=== PATIENT | male | born 1960 | race Caucasian/White ===

== ENCOUNTER 2017-02-10 17:35 | Observation (INO) | payer MEDICAID, OTHER ==
[~2017-02-10] VITALS: Ht 162.6 cm; Wt 79.7 kg
[~2017-02-10 17:35] MED LIST: CEPH-443; HYDR-1666; SULF1TAB7
[2017-02-10 23:09] VITALS: TEMP 98.2
[2017-02-10] MEDS ORDERED: LIDOCAINE/MYLANTA 40 ML BTL PO STA (23:30)
[2017-02-10] MEDS ORDERED: SOD CHLORIDE 0.9% 1,000 ML IV STA (23:30)
[2017-02-10 23:40] LABS: BASOPHILS % 0.3 % (0.0-2.0); EOSINOPHILS # 0.1 10^3/ul (0.0-0.5); EOSINOPHILS % 0.7 % (0.0-7.0); HEMATOCRIT 38.1 % (42.0-52.0); HEMOGLOBIN 13.5 g/dl (14.0-18.0); LYMPHOCYTES # 1.2 10^3/ul (0.8-2.9); LYMPHOCYTES % 10.8 % (15.0-51.0); MEAN CORPUSCULAR HEMOGLOBIN 30.3 pg (29.0-33.0); MEAN CORPUSCULAR HGB CONC 35.4 g/dl (32.0-37.0); MEAN CORPUSCULAR VOLUME 85.4 fl (82.0-101.0); MEAN PLATELET VOLUME 10.6 fl (7.4-10.4); MONOCYTE # 0.9 10^3/ul (0.3-0.9); MONOCYTES % 8.1 % (0.0-11.0); NEUTROPHILS % 79.6 % (39.0-77.0); PLATELET COUNT 197 10^3/UL (140-415); RED BLOOD COUNT 4.46 10^6/ul (4.70-6.10); RED CELL DISTRIBUTION WIDTH 12.4 % (11.5-14.5); WHITE BLOOD COUNT 10.6 10^3/ul (4.8-10.8)
[2017-02-10 23:57] LABS: ALBUMIN 3.6 g/dl (3.3-4.9); ALBUMIN/GLOBULIN RATIO 1.09; BILIRUBIN,INDIRECT 0.3 mg/dl (0-1.1); BILIRUBIN,TOTAL 0.3 mg/dl (0.2-1.3); CALCIUM 9.2 mg/dl (8.4-10.2); CREATININE 2.97 mg/dl (0.61-1.24); POTASSIUM 3.6 mmol/L (3.5-5.1); TOTAL PROTEIN 6.9 g/dl (6.1-8.1)
[2017-02-11] VITALS (8 sets, daily range): BP systolic 103–187; BP diastolic 59–90; PULSE 66–83; RESP 16–20; Ht 162.6 cm; Wt 79.7 kg
--- NOTE | 2017-02-11 00:04 | ERA ---
ER Documentation Chief Complaint Date/Time DATE: 02/11/17 TIME: 00:03 Chief Complaint abdominal pain and body ache x 2 days HPI This a 56-year-old male with complaints of epigastric and mid abdominal pain onset this morning. He says if he tries to have anything to eat or drink he will vomit. Vomitus is nonbilious and nonbloody. He also complains of diffuse body aches. Says he has not had a fever that is documented has had some chills. No cough no dysuria. The patient denies any alcohol or NSAID use. ROS All systems reviewed and are negative except as per history of present illness. Medications Home Meds Reported Medications Hydrocodone Bit/Acetaminophen (Vicodin 5/500 Tablet) 1 Tab Tablet 10/09/12 Cephalexin* (Keflex*) 500 Mg Capsule 10/09/12 Sulfamethoxazole-Trimethoprim* (Bactrim* DS) 1 Tab Tab 10/09/12 Allergies Allergies: Coded Allergies: No Known Allergy (Unverified , 10/09/12) PMhx/Soc History of Surgery: No Anesthesia Reaction: No Hx Neurological Disorder: No Hx Respiratory Disorders: No Hx Cardiac Disorders: Yes (HTN) Hx Psychiatric Problems: No Hx Miscellaneous Medical Probl: No Hx Alcohol Use: Yes (OCCASSIONALLY) Hx Substance Use: No Hx Tobacco Use: Yes Smoking Status: Current every day smoker FmHx Family History: No coronary disease Physical Exam Vitals Vital Signs Date Time Temp Pulse Resp B/P Pulse Ox O2 Delivery O2 Flow Rate FiO2 02/11/17 01:47 71 16 169/92 95 Room Air 02/10/17 23:09 98.2 67 20 171/98 99 Room Air 02/10/17 17:37 99.5 75 18 182/90 96 Physical Exam Const: Well-developed, well-nourished Head: Atraumatic, normocephalic Eyes: Normal Conjunctiva, PERRLA, EOMI, normal sclera, no nystagmus ENT: Normal External Ears, Nose and Mouth, moist mucus membranes. Neck: Full range of motion. No meningismus, no lymphadenopathy. Resp: Clear to auscultation bilaterally, no wheezing, rhonchi, rales Cardio: Regular rate and rhythm, no murmurs, S1 S2 present Abd: Soft, mild mid abdominal and epigastric tenderness non distended. Normal bowel sounds, no guarding or rebound, no pulsitile abdominal masses or bruits, Left inguinal hernia that is a large no erythema to the skin, mild tenderness to palpation Skin: No petechiae or rashes, no ecchymosis , no maculopapular rash Back: No midline or flank tenderness Ext: No cyanosis, or edema, FROM x 4, normal inspection, neurovascularly intact x 4 Neur: Awake and alert, STR 5/5 x 4, sensation intact x 4, no focal findings, cerebellum intact Psych: Normal Mood and Affect Result Diagram: 02/10/17232902/10/172329 Results 24 hrs Laboratory Tests Test 02/10/17 23:30 White Blood Count 10.610^3/ul Red Blood Count 4.4610^6/ul Hemoglobin 13.5g/dl Hematocrit 38.1% Mean Corpuscular Volume 85.4fl Mean Corpuscular Hemoglobin 30.3pg Mean Corpuscular Hemoglobin Concent 35.4g/dl Red Cell Distribution Width 12.4% Platelet Count 88817^3/UL Mean Platelet Volume 10.6fl Neutrophils % 79.6% Lymphocytes % 10.8% Monocytes % 8.1% Eosinophils % 0.7% Basophils % 0.3% Nucleated Red Blood Cells % 0.0/100WBC Neutrophils # (Manual) 8.510^3/ul Lymphocytes # 1.210^3/ul Monocytes # 0.910^3/ul Eosinophils # 0.110^3/ul Basophils # 0.010^3/ul Nucleated Red Blood Cells # 0.010^3/ul Sodium Level 142mmol/L Potassium Level 3.6mmol/L Chloride Level 105mmol/L Carbon Dioxide Level 24mmol/L Anion Gap 17 Blood Urea Nitrogen 24mg/dl Creatinine 2.97mg/dl Glucose Level 96mg/dl Calcium Level 9.2mg/dl Total Bilirubin 0.3mg/dl Direct Bilirubin 0.00mg/dl Indirect Bilirubin 0.3mg/dl Aspartate Amino Transf (AST/SGOT) 14IU/L Alanine Aminotransferase (ALT/SGPT) 18IU/L Alkaline Phosphatase 66IU/L Total Protein 6.9g/dl Albumin 3.6g/dl Globulin 3.30g/dl Albumin/Globulin Ratio 1.09 Lipase 22U/L Current Medications Medications (Trade) Dose Ordered Sig/Ceci Route PRN Reason Start Time Stop Time Status Last Admin Dose Admin Sodium Chloride (NS) 1,000 ml @ 1,000 mls/hr Q1H STAT IV 02/10/17 23:30 02/11/17 00:29 DC 02/11/17 00:10 Miscellaneous Medication (Gi Cocktail (2)) 40 ml ONCE STAT PO 02/10/17 23:30 02/10/17 23:33 DC 02/11/17 00:10 Morphine Sulfate (morphine) 4 mg ONCE STAT IV 02/11/17 00:46 02/11/17 00:47 DC 02/11/17 00:53 Ondansetron HCl (Zofran Inj) 4 mg ONCE STAT IV 02/11/17 00:46 02/11/17 00:47 DC 02/11/17 00:52 Procedures/MDM PROCEDURE: CT abdomen and pelvis without contrast. CLINICAL INDICATION: Abdominal Pain TECHNIQUE: Noncontrast CT examination of the head, with axial, sagittal and coronal reformatted images. CTDI: 9.69 mGy and DLP: 635.61 mGy-cm. COMPARISON: None. FINDINGS: CT abdomen: Mild atelectasis at the bilateral lung bases. Otherwise, the lung bases are clear. The heart size is normal, without pericardial thickening or effusion. The liver is normal in size and density without focal mass or intrahepatic biliary dilatation. The spleen is normal in size and homogeneous in density. The stomach is partially collapsed, but is grossly unremarkable. The pancreas as visualized is normal. The gallbladder and biliary tree are unremarkable and there is no evidence for biliary dilatation. The adrenal glands are symmetric and normal. The kidneys are symmetrically unremarkable as well. No renal calculus or obstructive uropathy or mass lesion is seen. The aorta is of normal caliber. Aortic vascular calcifications are present. There is no retroperitoneal lymphadenopathy. The thomas hepatis region is clear. Diverticulosis in the distal transverse and descending colons. There are few right colon diverticula. CT pelvis: Partial herniation of the left anterior urinary bladder into the left inguinal canal. Herniation contains the anterior left urinary bladder and fat and measures 94 x 61 x 55 mm. The small bowel loops situated within the pelvis are unremarkable. The pelvic organs are otherwise normal. The pelvic sidewalls and inguinal regions are clear. The sigmoid colon contains numerous diverticula; and rectum is unremarkable. No mass, lymphadenopathy, or free fluid is seen. No acute inflammation is seen. The appendix is unremarkable. The surrounding osseous structures are remarkable for mild degenerative spondylosis of the spine. No osteolytic or osteoblastic lesion is detected. IMPRESSION: 1. Large 94 x 61 x 55 mm herniation of anterior left urinary bladder and fat into the left inguinal canal. 2. Diverticulosis of the distal transverse and descending colons as well as the sigmoid colon, and greater in the sigmoid colon. 3. Otherwise, no acute process in the abdomen. RPTAT: [facility] Physician Missy Date Time Electronically viewed and signed by Physician Missy on 02/11/2017 01:21 RS/ CC: KATHERIN ROCKWELL DO Patient has a creatinine of nearly 3.0 the patient says he does not have any history of renal insufficiency. He has a very large left inguinal hernia which does contain some of the bladder. Patient says he has no pain down there however it is tender to palpation. No signs of erythema to the skin he has had this bulge for "a long time". There does not appear to be any type of incarceration or bowel obstruction I will admit him for renal insufficiency which may be possibly caused by the herniation of the bladder into the left inguinal canal, perhaps the bladder being in the inguinal canal is preventing some urinary tract flow down the ureters however he does not have any hydrated hydronephrosis and this is less likely the patient has an elevated creatinine nearly 3.0 he does not have any history of prior kidney disease that he knows of. I will admit him for renal insufficiency. The patient has a hernia in the left inguinal canal that is tender to palpation but he said it does not hurt at rest. He said he has had this for "a long time ". The patient's creatinine is elevated could be due to the bladder going into the inguinal canal causing some decreased flow from the kidneys down the ureters however there is no hydronephrosis and this is probably less likely. Departure Diagnosis: Primary Impression: Renal insufficiency Condition: Stable KATHERIN ROCKWELL DO Feb 11, 2017 00:04
[2017-02-11] MEDS ORDERED: morphine 4 MG/ML VIAL IV STA ×2 (00:46→13:22)
[2017-02-11] MEDS ORDERED: ONDANSETRON 4 MG INJ IV STA (00:46)
--- NOTE | 2017-02-11 01:22 | RADRPT ---
PROCEDURE: CT abdomen and pelvis without contrast. CLINICAL INDICATION: Abdominal Pain TECHNIQUE: Noncontrast CT examination of the head, with axial, sagittal and coronal reformatted im ages. CTDI: 9.69 mGy and DLP: 635.61 mGy-cm. COMPARISON: None. FINDINGS: CT abdomen: Mild atelectasis at the bilateral lung bases. Otherwise, the lung bases are clear. The heart size is normal, without pericardial thickening or effusion. The liver is normal in size and density without focal mass or intrahepatic biliary dilatation. The spleen is normal in size and homogeneous in density. The stomach is partially collapsed, but is zina ssly unremarkable. The pancreas as visualized is normal. The gallbladder and biliary tree are unre markable and there is no evidence for biliary dilatation. The adrenal glands are symmetric and norm al. The kidneys are symmetrically unremarkable as well. No renal calculus or obstructive uropathy o r mass lesion is seen. The aorta is of normal caliber. Aortic vascular calcifications are present. There is no retroperit bay lymphadenopathy. The thomas hepatis region is clear. Diverticulosis in the distal transverse and descending colons. There are few right colon diverticula . CT pelvis: Partial herniation of the left anterior urinary bladder into the left inguinal canal. Herniation co ntains the anterior left urinary bladder and fat and measures 94 x 61 x 55 mm. The small bowel loops situated within the pelvis are unremarkable. The pelvic organs are otherwise normal. The pelvic sidewalls and inguinal regions are clear. The sigmoid colon contains numerous d iverticula; and rectum is unremarkable. No mass, lymphadenopathy, or free fluid is seen. No acute inflammation is seen. The appendix is unremarkable. The surrounding osseous structures are remarkable for mild degenerative spondylosis of the spine. N o osteolytic or osteoblastic lesion is detected. IMPRESSION: 1. Large 94 x 61 x 55 mm herniation of anterior left urinary bladder and fat into the left inguinal canal. 2. Diverticulosis of the distal transverse and descending colons as well as the sigmoid colon, and greater in the sigmoid colon. 3. Otherwise, no acute process in the abdomen. RPTAT: [facility] Physician Missy Date Time Electronically viewed and signed by Physician Missy on 02/11/2017 01:21 RS/
[2017-02-11] MEDS ORDERED: SOD CHLORIDE 0.9% 1,000 ML IV SCH (02:10)
[2017-02-11] MEDS ORDERED: ONDANSETRON 4 MG INJ IV PRN ×2 (02:30→04:00)
[2017-02-11] MEDS ORDERED: ACETAMINOPHEN 325 MG TAB PO PRN (02:30)
[2017-02-11] MEDS ORDERED: DEXTROSE 5%-0.45% NACL 1,000 ML IV SCH (04:00)
[2017-02-11] MEDS: morphine 4 MG/ML VIAL IV PRN ×4 (04:20→23:33)
[2017-02-11 05:47] LABS: BASOPHILS % 0.4 % (0.0-2.0); EOSINOPHILS # 0.1 10^3/ul (0.0-0.5); HEMATOCRIT 37.6 % (42.0-52.0); HEMOGLOBIN 12.7 g/dl (14.0-18.0); LYMPHOCYTES # 1.2 10^3/ul (0.8-2.9); LYMPHOCYTES % 12.9 % (15.0-51.0); MEAN CORPUSCULAR HEMOGLOBIN 29.4 pg (29.0-33.0); MEAN CORPUSCULAR HGB CONC 33.8 g/dl (32.0-37.0); MEAN PLATELET VOLUME 11.2 fl (7.4-10.4); MONOCYTE # 0.8 10^3/ul (0.3-0.9); MONOCYTES % 8.9 % (0.0-11.0); NEUTROPHILS % 76.4 % (39.0-77.0); PLATELET COUNT 185 10^3/UL (140-415); RED BLOOD COUNT 4.32 10^6/ul (4.70-6.10); RED CELL DISTRIBUTION WIDTH 12.1 % (11.5-14.5); WHITE BLOOD COUNT 9.4 10^3/ul (4.8-10.8)
--- NOTE | 2017-02-11 05:47 | HP ---
Date/Time of Note Date/Time of Note DATE: 02/11/17 TIME: 05:30 Assessment/Plan VTE Prophylaxis VTE Prophylaxis Intervention: SCD's Lines/Catheters IV Catheter Type (from Nrsg): Peripheral IV Assessment/Plan Assessment/Plan 1. Presumed acute kidney injury -will give IV fluid -Renal ultrasound and nephrology consult -CT/abdomen pelvis did show a large part of the bladder in the left inguinal canal but there is no sign of strangulation and the patient does not have any pain, so a post renal etiology as a result of bladder obstruction seems unlikely. 2. Abdominal pain: -Pain is described as burning type and mainly localized in the periumbilical and in the lower epigastric area. This could be from gastritis/PUD. He denied pain in the left inguinal hernia area. -He will be placed on a PPI 3. Left inguinal hernia, containing part of the bladder: Patient denies pain -I believe this surgical consult was placed in the ER to evaluate his inguinal hernia 4. Hypertensive urgency -Patient was recently diagnosed with hypertension but he stopped taking his medication about a month ago. Will adjust antihypertensives as needed for better BP control HPI/ROS Admit Date/Time Admit Date/Time Feb 11, 2017 at 02:10 Hx of Present Illness This is a 56-year-old male with a history of hypertension diagnosed recently, left inguinal hernia diagnosed 10 years ago who presented to the emergency department complaining of abdominal pain. He said about 4 5 days ago, he started experiencing generalized body ache and back pain, which he said felt like "flu". He went to an urgent care and was given pain medication with improvement in his symptom. He started experiencing abdominal pain yesterday, which is localized in the periumbilical area and is described as burning type. He denied acid reflux symptoms. He did however stated that for a while, he has been burping when on empty stomach. He was started on blood pressure medication , which he took for about a couple of months but stopped about a month ago. As far as his left inguinal hernia is concerned, it was diagnosed 10 years ago. He recently so a surgeon as an outpatient but no surgical intervention is planned. He said that he only has minimal pain intermittently for the past several years. Currently he denies pain in the inguinal area. He also denied urinary symptoms, fever, chills, chest pain or shortness of breath. When he presented to the ER, blood pressure was elevated at 182/90. Labs shows a BUN of 24 and creatinine of almost 3. CT abdomen/pelvis shows Large 94 x 61 x 55 mm herniation of anterior left urinary bladder and fat into the left inguinal canal. Patient denied a history of kidney disease. He also denied urinary symptoms. . PMH/Family/Social Social History Smoking Status: Current every day smoker Exam/Review of Systems Vital Signs Vitals Vital Signs Date Time Temp Pulse Resp B/P Pulse Ox O2 Delivery O2 Flow Rate FiO2 02/11/17 04:04 97.8 83 18 187/86 96 Room Air Exam Constitutional: alert, oriented, well developed Head: atraumatic, normocephalic Eyes: EOMI, other (There is some right eye redness. Twitching of his right eye is also noted) ENMT: other (There appears to be telangiectasia over nose) Respiratory: clear to auscultation, normal air movement Cardiovascular: nl pulses, regular rate and rhythm Gastrointestinal: non-tender, soft Genitourinary - Male: other (Left inguinal hernia is noted. No tenderness) Labs Result Diagram: 02/10/17 2330 02/10/17 2330 Medications Medications Current Medications Sodium Chloride 1,000 ml @ 80 mls/hr [id number] IV ; Start 02/11/17 at 02:10; Stop 02/11/17 at 14:39 Dextrose/Sodium Chloride (D5-1/2ns) 1,000 ml @ 100 mls/hr Q10H IV Last administered on 02/11/17 04:24; Admin Dose 100 MLS/HR; Start 02/11/17 at 04:00 Morphine Sulfate (morphine) 3 mg Q4H PRN IV PAIN Last administered on 04:20; Admin Dose 3 MG; Start 02/11/17 at 04:00 Ondansetron HCl (Zofran Inj) 4 mg Q6H PRN IV NAUSEA; Start 02/11/17 at 04:00 Hydralazine HCl (Apresoline) 10 mg Q4H PRN IV ELEVATED SYSTOLIC BP; Start 02/11 at 04:00 Amlodipine Besylate (Norvasc) 10 mg DAILY PO ; Start 02/11/17 at 09:00 KATY KHAN MD Feb 11, 2017 05:45
[2017-02-11 06:16] LABS: ALBUMIN 3.2 g/dl (3.3-4.9); ALBUMIN/GLOBULIN RATIO 1.1; BILIRUBIN,INDIRECT 0.3 mg/dl (0-1.1); BILIRUBIN,TOTAL 0.3 mg/dl (0.2-1.3); CALCIUM 8.4 mg/dl (8.4-10.2); CREATININE 3.01 mg/dl (0.61-1.24); POTASSIUM 3.4 mmol/L (3.5-5.1); TOTAL PROTEIN 6.1 g/dl (6.1-8.1)
[2017-02-11] MEDS ORDERED: POTASSIUM CHLORIDE (SR) 20 MEQ TAB PO STA (07:50)
[2017-02-11] MEDS: AMLODIPINE 10 MG TAB PO SCH (09:54)
[2017-02-11 10:16] LABS: ADD UMIC YES; UR ASCORBIC ACID NEGATIVE (NEGATIVE); UR BILIRUBIN (Dip) NEGATIVE (NEGATIVE); UR BLOOD (Dip) 1+ mg/dL (NEGATIVE); UR CLARITY CLEAR (CLEAR); UR COLOR STRAW (YELLOW); UR GLUCOSE (Dip) NEGATIVE (NEGATIVE); UR KETONES (Dip) NEGATIVE (NEGATIVE); UR LEUKOCYTE ESTERASE (Dip) NEGATIVE Leu/ul (NEGATIVE); UR NITRITE (Dip) NEGATIVE (NEGATIVE); UR RBC 1 /HPF (0-5); UR SPECIFIC GRAVITY (Dip) 1.004 (1.003-1.030); UR TOTAL PROTEIN (Dip) 2+ mg/dl (NEGATIVE); UR UROBILINOGEN (Dip) NEGATIVE (NEGATIVE)
--- NOTE | 2017-02-11 10:26 | RADRPT ---
PROCEDURE: Renal US. CLINICAL INDICATION: Renal dysfunction. TECHNIQUE: Multiple sonographic images of the kidneys and urinary bladder were obtained. The imag es were reviewed on a PACS workstation. COMPARISON: No prior studies are available for comparison. FINDINGS: The right kidney measures 13.2 cm. The left kidney measures 11.4 cm. There is no renal mass. There is no hydronephrosis. There is no renal calculus. Renal parenchymal thickness is normal bilaterally. Echogenicity is normal bilaterally. The perirenal regions are normal with no fluid collection or mass. The urinary bladder is not visualized. IMPRESSION: 1. Bladder not visualized. 2. No hydronephrosis. 3. Otherwise normal renal ultrasound. RPTAT: QQ .Jesus Erickson MD, Date Time Electronically viewed and signed by .Jesus Erickson MD, MD on 02/11/2017 10:26 .R/
[2017-02-11 10:43] LABS: POTASSIUM,URINE RANDOM < 9.7 mmol/L (25-125)
[2017-02-11] MEDS: DEXTROSE 5%-0.45% NACL 500 ML IV SCH ×3 (13:47→21:23)
--- NOTE | 2017-02-11 14:08 | CONS ---
DATE OF ADMISSION: 02/11/2017 DATE OF CONSULTATION: 02/11/2017 REASON FOR CONSULTATION: Acute kidney injury. HISTORY OF PRESENT ILLNESS: This is a 56-year-old male with a past medical history of hypertension, history of left inguinal hernia, who presents to the emergency room complaining of abdominal pain. The patient states the pain started about 4-5 days ago when he started experiencing general body aches, back pain, he said it was flu-like, he went to Urgent Care, was given medications. Patient states he has been taking Motrin 400 mg every 4 hours multiple days. The patient then developed worsening mid epigastric pain. As a result, he came into the emergency room for evaluation. Upon arrival, the patient had an elevated blood pressure 182/90, BUN 24, creatinine 3. CT of the pelvis showed a herniation in his anterior left urinary bladder. The patient was subsequently given pain medications and transferred to [facility] for continued care. In terms of patient's renal history, the patient states he has no prior history of chronic kidney disease. Denies any hemoptysis, hematemesis, hematochezia. PAST MEDICAL HISTORY: As stated above. History of left inguinal hernia. PAST SURGICAL HISTORY: None. ALLERGIES: NONE. FAMILY HISTORY: Noncontributory. SOCIAL HISTORY: Does not drink, smoke, or do drugs. MEDICATION: Reviewed. PHYSICAL EXAMINATION: VITAL SIGNS: Blood pressure is 103/59, respirations 18, pulse 69, temperature 98.5. HEENT: Head is normocephalic. NECK: Supple. HEART: Regular rate. LUNGS: Diminished breath sounds at the base. ABDOMEN: Soft. Positive mid epigastric tenderness to palpation. EXTREMITIES: Negative for clubbing, cyanosis. No edema. DERMATOLOGIC: Clean. No rashes. MUSCULOSKELETAL: No joint effusion. NEUROLOGIC: No focal deficits. LABORATORY DATA: Shows sodium 145, potassium 3.4, BUN 24, creatinine 3.01. White count 9.4, hemoglobin 10.7, hematocrit 37.6, platelet count is 195. Imaging studies reviewed. IMPRESSION AND PLAN: This is a 56-year-old male who presents with: 1. Nonoliguric acute kidney injury with unknown baseline creatinine. Etiology may be multifactorial secondary to non- steroidal anti-inflammatory drug use, gastrointestinal loss. Plan at this point is to do a full evaluation. Will check urinalysis with microanalysis. Check urine electrolytes. Check renal ultrasound. Would recommend to discontinue non-steroidal anti-inflammatory drug use. Continue IV hydration. Monitor closely. 2. Hyponatremia. The patient has a free water deficit of 1 liter. Encourage free water intake. 3. Hypokalemia. Replete potassium chloride. 4. Anemia. Monitor hemoglobin and hematocrit levels. 5. Mid-epigastric abdominal pain, etiology may be secondary to gastritis from recent non-steroidal anti-inflammatory drug use. Continue proton pump inhibitor. 6. History of left inguinal hernia. Continue to monitor. 7. Hypertension urgency secondary to pain. Continue current pain regimen. Thank you, Dr. Ceja, for this interesting consult. It will be a pleasure to follow the patient with you throughout the hospital course. Dictated By: Manuel Hector DO /[email or web address]/[email or web address] /Document#: [id number]
--- NOTE | 2017-02-11 18:10 | RADRPT ---
PROCEDURE: XR Chest. CLINICAL INDICATION: Preoperative clearance TECHNIQUE: Single frontal view of the chest was obtained COMPARISON: None FINDINGS: No pleural effusion or pneumothorax. Low lung volumes with elevated right hemidiaphragm with bibasilar atelectasis. Normal cardiac silhouette with left ventricular configuration. Dilated aortic arch suggestive of ch ronic systemic hypertension. No acute osseous abnormality. IMPRESSION: No acute cardiopulmonary disease. Low lung volumes with bibasilar atelectasis. RPTAT: EE Physician Spring Date Time Electronically viewed and signed by Physician Spring on 02/11/2017 18:10 /
--- NOTE | 2017-02-11 18:34 | CONS ---
Date/Time of Note Date/Time of Note DATE: 02/11/17 TIME: 18:26 Assessment/Plan Assessment/Plan Additional Assessment/Plan Painful and symptomatic large left inguinal hernia Plan: We will arrange for operative repair with mesh sometime tomorrow. I have described the procedure, outcomes, expectations alternatives and risks in detail with the patient and both have an excellent understanding of the nature of his situation and agreed to the proposed plan of therapy as outlined. Consultation Date/Type/Reason Admit Date/Time Feb 11, 2017 at 02:10 Date of Consultation: Feb 11, 2017 Reason for Consultation Large painful left inguinal hernia Hx of Present Illness Patient is a 56-year-old gentleman who was admitted last night with chief complaints of abdominal pain nausea and vomiting. He was noted to have a large slightly tender left inguinal hernia. CT scan of the abdomen showed no intra- abdominal pathology. It did show a large left inguinal hernia which contained a portion of the urinary bladder. The patient's symptoms of abdominal pain now localized to the hernia itself. He has no visceral symptoms today. He has no fever, but does have unexplained renal compromise for which she is being seen by the appropriate specialist. Gastrointestinal: other (As in the HPI) Genitourinary: other (Patient states that he has had this hernia for quite some time but it has never been this painful) Musculoskeletal: no complaints Skin: no complaints Neurologic: no complaints Endocrine: no complaints Lymphatic: no complaints Psychological: no complaints Past Surgical History Past Surgical Hx: noncontributory Family History Significant Family History: no pertinent family hx Social History Smoking Status: Current every day smoker Drug Use: none Exam/Review of Systems Vital Signs Vitals Vital Signs Date Time Temp Pulse Resp B/P Pulse Ox O2 Delivery O2 Flow Rate FiO2 02/11/17 16:10 97.9 68 20 170/87 96 02/11/17 05:45 Room Air Intake and Output 02/10/17 02/10/17 02/11/17 15:00 23:00 07:00 Intake Total 350 ml Output Total 550 ml Balance -200 ml Exam Constitutional: alert, oriented Psych: no complaints Head: normocephalic Eyes: nl conjunctiva ENMT: nl external ears & nose Neck: supple Respiratory: clear to auscultation Gastrointestinal: soft Genitourinary - Male: other (Large partially reducible left inguinal hernia with slight tenderness) Musculoskeletal: nl extremities to inspection Extremities: normal pulses Skin: nl turgor Lymph: nl lymph nodes Results Result Diagram: 02/11/17 0443 02/11/17 0443 Results 24 hrs Laboratory Tests Test 02/10/17 23:30 02/11/17 04:43 02/11/17 09:00 White Blood Count 10.6 9.4 Red Blood Count 4.46 L 4.32 L Hemoglobin 13.5 L 12.7 L Hematocrit 38.1 L 37.6 L Mean Corpuscular Volume 85.4 87.0 Mean Corpuscular Hemoglobin 30.3 29.4 Mean Corpuscular Hemoglobin Concent 35.4 33.8 Red Cell Distribution Width 12.4 12.1 Platelet Count 197 185 Mean Platelet Volume 10.6 H 11.2 H Neutrophils % 79.6 H 76.4 Lymphocytes % 10.8 L 12.9 L Monocytes % 8.1 8.9 Eosinophils % 0.7 1.0 Basophils % 0.3 0.4 Nucleated Red Blood Cells % 0.0 0.0 Neutrophils # (Manual) 8.5 H 7.2 Lymphocytes # 1.2 1.2 Monocytes # 0.9 0.8 Eosinophils # 0.1 0.1 Basophils # 0.0 0.0 Nucleated Red Blood Cells # 0.0 0.0 Sodium Level 142 145 H Potassium Level 3.6 3.4 L Chloride Level 105 108 Carbon Dioxide Level 24 22 Anion Gap 17 H 18 H Blood Urea Nitrogen 24 H 24 H Creatinine 2.97 H 3.01 H Glucose Level 96 106 Calcium Level 9.2 8.4 Total Bilirubin 0.3 0.3 Direct Bilirubin 0.00 0.00 Indirect Bilirubin 0.3 0.3 Aspartate Amino Transf (AST/SGOT) 14 L 13 L Alanine Aminotransferase (ALT/SGPT) 18 26 Alkaline Phosphatase 66 58 Total Protein 6.9 6.1 Albumin 3.6 3.2 L Globulin 3.30 H 2.90 Albumin/Globulin Ratio 1.09 1.10 Lipase 22 L Urine Color STRAW Urine Clarity CLEAR Urine pH 6.0 Urine Specific [place] 1.004 Urine Ketones NEGATIVE Urine Nitrite NEGATIVE Urine Bilirubin NEGATIVE Urine Urobilinogen NEGATIVE Urine Leukocyte Esterase NEGATIVE Urine Microscopic RBC 1 Urine Microscopic WBC 0 Urine Hemoglobin 1+ H Urine Random Creatinine 50.42 Urine Random Sodium 29 L Urine Random Potassium < 9.7 L Urine Glucose NEGATIVE Urine Total Protein 76.0 H Medications Medications Current Medications Morphine Sulfate (morphine) 3 mg Q4H PRN IV PAIN Last administered on 09:43; Admin Dose 3 MG; Start 02/11/17 at 04:00 Ondansetron HCl (Zofran Inj) 4 mg Q6H PRN IV NAUSEA; Start 02/11/17 at 04:00 Hydralazine HCl (Apresoline) 10 mg Q4H PRN IV ELEVATED SYSTOLIC BP; Start 02/11 at 04:00 Amlodipine Besylate 10 mg 10 mg DAILY PO Last administered on 02/11/17 09:54; Admin Dose 10 MG; Start 02/11/17 at 09:00 Dextrose/Sodium Chloride (D5-1/2ns) 500 ml @ 100 mls/hr Q5H IV Last administered on 02/11/17 13:47; Admin Dose 100 MLS/HR; Start 02/11/17 at 13:26 Pantoprazole (Protonix Tab) 40 mg DAILY@06 PO ; Start 02/12/17 at 06:00 DAVEY BALTAZAR MD Feb 11, 2017 18:34
[2017-02-11] MEDS ORDERED: morphine 2 MG INJ IV PRN (19:00)
[2017-02-11] MEDS: hydrALAzine 20 MG INJ IV PRN (21:55)
[2017-02-12] VITALS (26 sets, daily range): BP systolic 131–163; BP diastolic 56–91; PULSE 73–86; RESP 14–21
[2017-02-12] MEDS: DEXTROSE 5%-0.45% NACL 500 ML IV SCH ×4 (04:07→19:43)
[2017-02-12] MEDS: PANTOPRAZOLE (EC) 40 MG TAB PO SCH (05:29)
[2017-02-12 05:34] LABS: BASOPHILS % 0.2 % (0.0-2.0); EOSINOPHILS # 0.1 10^3/ul (0.0-0.5); EOSINOPHILS % 1.1 % (0.0-7.0); HEMATOCRIT 36.7 % (42.0-52.0); HEMOGLOBIN 12.4 g/dl (14.0-18.0); LYMPHOCYTES # 0.8 10^3/ul (0.8-2.9); LYMPHOCYTES % 9.6 % (15.0-51.0); MEAN CORPUSCULAR HEMOGLOBIN 29.2 pg (29.0-33.0); MEAN CORPUSCULAR HGB CONC 33.8 g/dl (32.0-37.0); MEAN CORPUSCULAR VOLUME 86.4 fl (82.0-101.0); MONOCYTE # 0.7 10^3/ul (0.3-0.9); NEUTROPHILS % 80.9 % (39.0-77.0); PLATELET COUNT 180 10^3/UL (140-415); RED BLOOD COUNT 4.25 10^6/ul (4.70-6.10); RED CELL DISTRIBUTION WIDTH 12.5 % (11.5-14.5); WHITE BLOOD COUNT 8.5 10^3/ul (4.8-10.8)
[2017-02-12] MEDS: morphine 4 MG/ML VIAL IV PRN (05:51)
[2017-02-12 06:11] LABS: CALCIUM 8.5 mg/dl (8.4-10.2); CREATININE 3.3 mg/dl (0.61-1.24); MAGNESIUM 2.4 mg/dl (1.7-2.5); PHOSPHORUS 4.5 mg/dl (2.5-4.9); POTASSIUM 3.8 mmol/L (3.5-5.1)
[2017-02-12] MEDS: hydrALAzine 20 MG INJ IV PRN (06:47)
[2017-02-12] MEDS ORDERED: SUGAMMADEX SODIUM 200 MG/2 ML VIAL IV ONE (07:00)
[2017-02-12] MEDS ORDERED: FENTAnyl 50 MCG/ML VIAL ONE (07:41)
[2017-02-12] MEDS ORDERED: GLYCOPYRROLATE 0.4 MG INJ ONE (07:41)
[2017-02-12] MEDS ORDERED: MIDAZOLAM 1 MG/ML 2 ML INJ ONE (07:41)
[2017-02-12] MEDS ORDERED: NEOSTIGMINE 3 MG/3 ML SYRINGE ONE (07:41)
[2017-02-12] MEDS ORDERED: ROCURONIUM 50 MG INJ ONE (07:41)
[2017-02-12] MEDS ORDERED: LIDOCAINE 2% (SDV) 5 ML INJ ONE (07:41)
[2017-02-12] MEDS ORDERED: PROPOFOL 20 ML ONE (07:41)
--- NOTE | 2017-02-12 07:56 | HPN ---
Date/Time of Note Date/Time of Note DATE: 02/12/17 TIME: 07:56 Interval H&P Admission Note Pt. seen H&P reviewed: No system changes DAVEY BALTAZAR MD Feb 12, 2017 07:56
[2017-02-12] MEDS ORDERED: SUCCINYLCHOLINE CHLORIDE 100 MG/5 ML SYG IV ONE (08:21)
[2017-02-12] MEDS ORDERED: BUPIVACAINE 0.25% (MPF) 30 ML INJ ONE (08:24)
[2017-02-12] MEDS ORDERED: LABETALOL HCL 20MG INJ ONE (08:25)
[2017-02-12] MEDS ORDERED: BUPIVACAINE 0.25% (MPF) 30 ML INJ INJ ONE (08:41)
[2017-02-12] MEDS ORDERED: OXYCODONE/ACETAMINOPHEN (5/325) TAB PO PRN ×2 (09:00)
[2017-02-12] MEDS ORDERED: LABETALOL HCL 20MG INJ IV PRN (09:00)
[2017-02-12] MEDS ORDERED: MIDAZOLAM 1 MG/ML 2 ML INJ IV PRN (09:00)
[2017-02-12] MEDS ORDERED: hydrALAzine 20 MG INJ IV PRN (09:00)
[2017-02-12] MEDS ORDERED: DIPHENHYDRAMINE 50 MG INJ IV PRN (09:00)
[2017-02-12] MEDS: AMLODIPINE 10 MG TAB PO SCH (09:00)
[2017-02-12] MEDS ORDERED: ATROPINE 1 MG/10 ML SYRINGE IV PRN (09:00)
[2017-02-12] MEDS ORDERED: ONDANSETRON 4 MG INJ IV PRN ×2 (09:00)
[2017-02-12] MEDS ORDERED: EPHEDrine SULFATE 50 MG/5 ML SYG IV PRN (09:00)
[2017-02-12] MEDS ORDERED: HYDROmorphONE (0.2 MG/ML) 10ML SYG IV PRN ×3 (09:00)
[2017-02-12] MEDS ORDERED: morphine (1 MG/ML) 10ML SYRINGE IV PRN ×3 (09:00)
[2017-02-12] MEDS ORDERED: FENTAnyl 50 MCG/ML VIAL IV PRN (09:00)
[2017-02-12] MEDS ORDERED: morphine 2 MG INJ IV PRN (09:00)
[2017-02-12] MEDS ORDERED: MEPERIDINE 25 MG INJ IV PRN (09:00)
--- NOTE | 2017-02-12 09:08 | OPR ---
Date/Time of Note Date/Time of Note DATE: 02/12/17 TIME: 09:02 Operative Report Procedure Date: Feb 12, 2017 Preoperative Diagnosis Incarcerated left inguinal hernia Postoperative Diagnosis Incarcerated left inguinal hernia Operation Performed 1. Repair left inguinal hernia with extra large plug 2. Reduction incarcerated left inguinal hernia 3. Left inguinal nerve block Surgeon: DAVEY BALTAZAR MD Anesthesia Type: general Anesthesiologist: DARRION SEXTON MD Estimated Blood Loss: 0 - 10 ml's Transfusion Required: no Specimen: none Grafts/Implants Extra large Bard PerFix plug Tubes/Drains None Complications: no Pt Condition Post Procedure: stable Disposition: PACU Indications Pain nausea Operative\Procedure Findings Left inguinal hernia was incarcerated at the beginning of the procedure Procedure Description After satisfactory general anesthesia was achieved, the abdomen was prepped and draped in the usual fashion. Pressure and traction on the hernia achieved a complete reduction. Next, a 4-1/2 cm transverse suprapubic left groin incision was made and carried down to the external oblique aponeurosis. This was opened in the direction of its fibers. The cord and nerve retracted and preserved. There was a large rectus sac. This was dissected circumferentially and reduced. The reduction was maintained by placement of an extra-large plug secured circumferentially to healthy fascia with interrupted 3-0 Vicryl suture. Next the flat portion of the mesh was cut and fashioned to fit in the floor of the canal is an overlay. It was anchored to the pubic tubercle with 2-0 Novafil, laterally to inguinal ligament with interrupted 2-0 Novafil, and medially to conjoined tendon with interrupted 2-0 Novafil. The mesh distal to the cord was reconstituted with a single suture of 3-0 Vicryl creating a new internal ring of appropriate size. The cord and nerve were then replaced beneath the external oblique which was closed with a running 2-0 Vicryl. Next the left inguinal nerve block performed. 10 cc of 0.25% plain Marcaine were injected into the fascia 1 cm medial and inferior to the left anterior iliac spine. 10 more cc of local anesthetic were injected directly into the wound. Rafael's fascia was closed with interrupted 3-0 Vicryl suture and skin closed with subcuticular absorbable luis carlos. Sponge and needle counts were reported as correct 2. DAVEY BALTAZAR MD Feb 12, 2017 09:08
--- NOTE | 2017-02-12 09:08 | PN ---
DATE: 02/12/2017 SUBJECTIVE DATA: Patient was currently being taken for hernia repair surgery by . No other events noted vitals. OBJECTIVE DATA: VITAL SIGNS: Blood pressure is 157/85, respirations 19, pulse 93, temperature 99.1. HEENT: Head is normocephalic. NECK: Supple. HEART: Regular rate. LUNGS: Diminished breath sounds at the base. ABDOMEN: Soft, mild tenderness to palpation. EXTREMITIES: Negative for clubbing, cyanosis. No edema. DERMATOLOGIC: No rashes. MUSCULOSKELETAL: No joint effusion. NEUROLOGIC: Unchanged exam. MEDICATIONS: Reviewed. LABORATORY AND DIAGNOSTIC DATA: Sodium 141, potassium 3.8, BUN 25, creatinine 3.30. White count 8.5, hemoglobin 10.4, crit 36.7, platelet count is 180. The patient's urinalysis shows a FENa less than 1 percent. Protein creatinine ratio of 1.2 g/g of creatinine. Renal ultrasound, otherwise negative. Urinalysis shows positive proteinuria. No pyuria or hematuria. ASSESSMENT AND PLAN: 1. Nonoliguric acute kidney injury with unknown baseline creatinine. Etiology is likely secondary to acute tubular necrosis due to recent NSAID use and volume depletion from gastrointestinal losses. The patient likely remains in injury phase of acute tubular necrosis as his creatinine continues to increase. Plan at this point would be to continue current treatment plan. Continue IV hydration. Supportive care. Renally dose all meds. 2. Hyponatremia, improved. 3. Hypokalemia. Continue to monitor. 4. Anemia. Monitor H and H levels. 5. Abdominal hernia with severe abdominal pain. The patient is scheduled for surgical correction today. Will follow up with General Surgery. 6. Hypertensive urgency secondary to pain, improved. Continue to monitor. Dictated By: Manuel Hector DO /[email or web address]/isaac /Document#: [id number]
[2017-02-12] MEDS: FENTAnyl 50 MCG/ML VIAL IV PRN ×2 (09:35→09:45)
[2017-02-12 14:02] LABS: MICROALBUMIN 24.9 mg/dL
--- NOTE | 2017-02-12 15:35 | RADRPT ---
Vent Rate: 65 bpm RR Interval: 0 msec DC Interval: 132 msec QRS Duration: 90 msec QT Interval: 400 msec QTC Interval: 416 msec P-R-T [place]: 25 - -12 - 23 degrees Normal sinus rhythm Normal ECG Electronically Signed By: Cosmo Molina [id number]
--- NOTE | 2017-02-12 17:55 | PN ---
Date/Time of Note Date/Time of Note DATE: 02/12/17 TIME: 17:51 Assessment/Plan VTE Prophylaxis VTE Prophylaxis Intervention: LMWH Lines/Catheters IV Catheter Type (from Nrs): Peripheral IV Urinary Cath still in place: No Assessment/Plan Chief Complaint/Hosp Course Subjective: Events noted. Some left eye redness. No loss of vision or pain w eom. Objective: Vital signs stable No pallor adenopathy. EOMI. Regular Ctab bs diminished; mild tender; no r/r/g No edema A/P 1. Incarcerated left inguinal hernia; sp Repair/ reduction lt inguinal hernia w extra large plug. Stable, advance diet when appropriate. 2. Tobacco abuse 3. Htn 4. Lt eye redness probably allergic 5. Nonadherence 6. ARF/ ATN possible CKD 7. Diverticulosis Problems: Exam/Review of Systems Vital Signs Vitals Vital Signs Date Time Temp Pulse Resp B/P Pulse Ox O2 Delivery O2 Flow Rate FiO2 02/12/17 17:00 83 17 145/74 96 Room Air 02/12/17 15:00 2.0 02/12/17 12:17 97.9 Intake and Output 02/11/17 02/11/17 02/12/17 15:00 23:00 07:00 Intake Total 500 ml 1930 ml 600 ml Balance 500 ml 1930 ml 600 ml Results Result Diagram: 02/12/17 0443 02/12/17 0443 Results 24 hrs Laboratory Tests Test 02/12/17 04:43 White Blood Count 8.5 Red Blood Count 4.25 L Hemoglobin 12.4 L Hematocrit 36.7 L Mean Corpuscular Volume 86.4 Mean Corpuscular Hemoglobin 29.2 Mean Corpuscular Hemoglobin Concent 33.8 Red Cell Distribution Width 12.5 Platelet Count 180 Mean Platelet Volume 11.0 H Neutrophils % 80.9 H Lymphocytes % 9.6 L Monocytes % 8.0 Eosinophils % 1.1 Basophils % 0.2 Nucleated Red Blood Cells % 0.0 Neutrophils # (Manual) 6.9 Lymphocytes # 0.8 Monocytes # 0.7 Eosinophils # 0.1 Basophils # 0.0 Nucleated Red Blood Cells # 0.0 Sodium Level 141 Potassium Level 3.8 Chloride Level 111 H Carbon Dioxide Level 21 Anion Gap 13 Blood Urea Nitrogen 25 H Creatinine 3.30 H Glucose Level 97 Calcium Level 8.5 Phosphorus Level 4.5 Magnesium Level 2.4 Medications Medications Current Medications Morphine Sulfate (morphine) 3 mg Q4H PRN IV PAIN Last administered on 02/12/17 05:51; Admin Dose 3 MG; Start 02/11/17 at 04:00 Hydralazine HCl (Apresoline) 10 mg Q4H PRN IV ELEVATED SYSTOLIC BP Last administered on 02/12/17 06:47; Admin Dose 10 MG; Start 02/11/17 at 04:00 Amlodipine Besylate 10 mg 10 mg DAILY PO Last administered on 02/11/17 09:54; Admin Dose 10 MG; Start 02/11/17 at 09:00 Dextrose/Sodium Chloride (D5-1/2ns) 500 ml @ 100 mls/hr Q5H IV Last administered on 02/12/17 14:09; Admin Dose 100 MLS/HR; Start 02/11/17 at 13:26 Pantoprazole (Protonix Tab) 40 mg DAILY@06 PO ; Start 02/12/17 at 06:00 Morphine Sulfate (morphine) 2 mg Q2H PRN IV BREAKTHROUGH PAIN; Start 02/11/17 at 19:00; Stop 02/12/17 at 18:59 Oxycodone/ Acetaminophen (Percocet (5/ 325)) 1 tab Q4H PRN PO MILD PAIN (1-3); Start 02/12/17 at 09:00 Oxycodone/ Acetaminophen (Percocet (5/ 325)) 2 tab Q4H PRN PO MODERATE PAIN (4- 6); Start 02/12/17 at 09:00 Ondansetron HCl (Zofran Inj) 4 mg Q6H PRN IV NAUSEA; Start 02/12/17 at 09:00 YOSHI FENTON MD Feb 12, 2017 17:55
--- NOTE | 2017-02-12 19:02 | RADRPT ---
Echocardiogram Report Patient Name: CANDACE MOE Gender: Male Date: 1960 Study Date: 12-Feb-2017 Manager Commercial: Thien Saenz RDCS Location: PACU Ref. Physician: REMA MURRAY Quality: Good Procedures: Transthoracic echocardiogram with complete 2D, M-Mode, and doppler examination. Indications: Cardiac Clearance. 2D/M Mode Doppler Measurement Value Normal Ranges Measurement Value Normal Ranges LVIDd 2D 4.7 3.5 - 5.6 cm AV Peak [place] 1.6 m/sec LVIDs 2D 2.0 2.1 - 4.1 cm AV Peak PG 10.7 mmHg LVPWd 2D 1.1 0.6 - 1.1 cm LVOT Peak [place] 1.0 m/sec IVSd 2D 1.0 0.6 - 1.1 cm LVOT Peak PG 3.7 mmHg AoR Diam 2D 2.9 2.0 - 3.7 cm MV E Peak [place] 0.9 m/sec EDV 2D 101.7 cm3 MV A Peak [place] 0.9 m/sec ESV 2D 8.4 cm3 MV E/A 0.9 LA Dimen 2D 3.7 2.3 - 4.0 cm MV Decel Time 144 msec MV Decel [place] 6 MV E/A 0.9 TR Peak [place] 1.9 m/sec TR Peak PG 13.8 mmHg RVSP 17.0 mmHg Findings Left Ventricle: Normal left ventricular systolic function. Normal left ventricular cavity size. Mild concentric left ventricular hypertrophy. Ejection fraction is visually estimated at 55 %. Tissue Doppler/Mitral Doppler indices are consistent with impaired relaxation (Stage I diastolic dysfunction). Right Ventricle: Normal right ventricular size. Normal right ventricular systolic function. Left Atrium: The left atrium is normal in size. Right Atrium: The right atrium is normal in size. Mitral Valve: Mitral valve leaflets appear mildly thickened. Mild mitral annular calcification. Trace mitral regurgitation. Aortic Valve: Normal appearance of the aortic valve. No significant aortic stenosis or insufficiency. Tricuspid Valve: Normal appearance of the tricuspid valve. Estimated peak PA systolic pressure 17 mmHg. There is trace tricuspid regurgitation. Pulmonic Valve: Normal pulmonic valve appearance. Pericardium: Normal pericardium with no significant pericardial effusion. Aorta: Normal aortic root. IVC: Normal size and normal respiratory collapse consistent with normal right atrial pressure. Conclusions 1.Normal left ventricular systolic function. Normal left ventricular cavity size. Mild concentric left ventricular hypertrophy. Ejection fraction is visually estimated at 55 %. Tissue Doppler/Mitral Doppler indices are consistent with impaired relaxation (Stage I diastolic dysfunction). 2.Normal right ventricular size. Normal right ventricular systolic function. 3.Mitral valve leaflets appear mildly thickened. Mild mitral annular calcification. Trace mitral regurgitation. 4.Normal appearance of the tricuspid valve. Estimated peak PA systolic pressure 17 mmHg. There is trace tricuspid regurgitation. Electronically Signed By: Jeremy Monroe 12-Feb-2017 19:01:35 -0700 Patient Name: CANDACE MOE Study Date: 12-Feb-2017 [id number]
[2017-02-12] MEDS: OXYCODONE/ACETAMINOPHEN (5/325) TAB PO PRN (19:21)
[2017-02-12] MEDS: AZELASTINE 0.05% 6 ML OPH LEFT EYE SCH ×2 (19:46→21:00)
[2017-02-12] MEDS ORDERED: DOCUSATE SODIUM 100 MG CAP PO SCH (21:00)
[2017-02-13] MEDS: DEXTROSE 5%-0.45% NACL 500 ML IV SCH ×4 (00:35→15:26)
[2017-02-13 01:48] VITALS: BP 147/78; RESP 22
[2017-02-13] MEDS: OXYCODONE/ACETAMINOPHEN (5/325) TAB PO PRN ×3 (01:52→13:02)
[2017-02-13 05:23] LABS: BASOPHILS % 0.2 % (0.0-2.0); EOSINOPHILS % 0.2 % (0.0-7.0); HEMATOCRIT 36.1 % (42.0-52.0); HEMOGLOBIN 12.2 g/dl (14.0-18.0); MEAN CORPUSCULAR HEMOGLOBIN 29.4 pg (29.0-33.0); MEAN CORPUSCULAR HGB CONC 33.8 g/dl (32.0-37.0); MEAN PLATELET VOLUME 10.8 fl (7.4-10.4); MONOCYTE # 1.1 10^3/ul (0.3-0.9); MONOCYTES % 9.3 % (0.0-11.0); NEUTROPHILS % 81.6 % (39.0-77.0); PLATELET COUNT 191 10^3/UL (140-415); RED BLOOD COUNT 4.15 10^6/ul (4.70-6.10); RED CELL DISTRIBUTION WIDTH 12.5 % (11.5-14.5); WHITE BLOOD COUNT 11.8 10^3/ul (4.8-10.8)
[2017-02-13 05:47] LABS: INR 1.07; PROTIME 13.9 Sec (12.2-14.2); PT RATIO 1.1
[2017-02-13] MEDS: PANTOPRAZOLE (EC) 40 MG TAB PO SCH (05:58)
[2017-02-13 06:05] LABS: CALCIUM 8.4 mg/dl (8.4-10.2); CREATININE 2.56 mg/dl (0.61-1.24); MAGNESIUM 2.6 mg/dl (1.7-2.5)
[2017-02-13 07:56] VITALS: BP 161/93; RESP 16
[2017-02-13] MEDS: AMLODIPINE 10 MG TAB PO SCH (08:20)
[2017-02-13] MEDS: AZELASTINE 0.05% 6 ML OPH LEFT EYE SCH (08:20)
[2017-02-13 09:00] VITALS: BP 154/80; PULSE 83; RESP 18
[2017-02-13] MEDS ORDERED: HEPARIN 5,000 UNIT/0.5 ML VIAL SC SCH (09:00)
--- NOTE | 2017-02-13 11:07 | PN ---
Date/Time of Note Date/Time of Note DATE: 02/13/17 TIME: 11:06 Assessment/Plan Lines/Catheters IV Catheter Type (from [facility]): Peripheral IV Muhammad in Place (from [facility]): No Assessment/Plan Chief Complaint/Hosp Course Patient is a 56-year-old gentleman who was admitted last night with chief complaints of abdominal pain nausea and vomiting. He was noted to have a large slightly tender left inguinal hernia. CT scan of the abdomen showed no intra- abdominal pathology. It did show a large left inguinal hernia which contained a portion of the urinary bladder. The patient's symptoms of abdominal pain now localized to the hernia itself. He has no visceral symptoms today. He has no fever, but does have unexplained renal compromise for which she is being seen by the appropriate specialist. Problems: Assessment/Plan Excellent postoperative recovery Incision is clean and patient is asymptomatic Cleared for discharge home today pending medical clearance Subjective 24 Hr Interval Summary Postoperative day #1 Should markedly symptomatically improved Nominal examination is benign Exam/Review of Systems Vital Signs Vitals Vital Signs Date Time Temp Pulse Resp B/P Pulse Ox O2 Delivery O2 Flow Rate FiO2 02/13/17 09:00 83 18 154/80 98 Room Air 02/13/17 07:56 98.0 02/12/17 15:00 2.0 Intake and Output 02/12/17 02/12/17 02/13/17 15:00 23:00 07:00 Intake Total 600 ml 1200 ml 1750 ml Output Total 20 ml 1300 ml 1350 ml Balance 580 ml -100 ml 400 ml Results Result Diagram: 02/13/17 0442 02/13/17 0442 DAVEY BALTAZAR MD Feb 13, 2017 11:07
--- NOTE | 2017-02-13 11:34 | PN ---
Date/Time of Note Date/Time of Note DATE: 02/13/17 TIME: 11:31 Assessment/Plan VTE Prophylaxis VTE Prophylaxis Intervention: other Lines/Catheters IV Catheter Type (from [facility]): Peripheral IV Urinary Cath still in place: No Assessment/Plan Chief Complaint/Hosp Course s/phernia repair surgery by Dr. Long. No other events noted good uop arf is slightly better OBJECTIVE DATA: HEENT: Head is normocephalic. NECK: Supple. HEART: Regular rate. LUNGS: Diminished breath sounds at the base. ABDOMEN: Soft, mild tenderness to palpation. EXTREMITIES: Negative for clubbing, cyanosis. No edema. DERMATOLOGIC: No rashes. MUSCULOSKELETAL: No joint effusion. NEUROLOGIC: Unchanged exam. MEDICATIONS: Reviewed. ASSESSMENT AND PLAN: 1. Nonoliguric acute kidney injury with unknown baseline creatinine. Etiology is likely secondary to acute tubular necrosis due to recent NSAID use and volume depletion from gastrointestinal losses. Improving. OK to dc from renal standpoint. He will follow up with us in a few days for recheck of his kidney function 2. Hyponatremia, improved. 3. Hypokalemia. Continue to monitor. 4. Anemia. Monitor H and H levels. 5. Abdominal hernia with severe abdominal pain. S/P surgery 6. Hypertensive urgency secondary to pain, improved. Continue to monitor. Problems: Exam/Review of Systems Vital Signs Vitals Vital Signs Date Time Temp Pulse Resp B/P Pulse Ox O2 Delivery O2 Flow Rate FiO2 02/13/17 09:00 83 18 154/80 98 Room Air 02/13/17 07:56 98.0 02/12/17 15:00 2.0 Intake and Output 02/12/17 02/12/17 02/13/17 15:00 23:00 07:00 Intake Total 600 ml 1200 ml 1750 ml Output Total 20 ml 1300 ml 1350 ml Balance 580 ml -100 ml 400 ml Results Result Diagram: 02/13/17 0442 02/13/17 0442 Results 24 hrs Laboratory Tests Test 02/13/17 04:42 White Blood Count 11.8 #H Red Blood Count 4.15 L Hemoglobin 12.2 L Hematocrit 36.1 L Mean Corpuscular Volume 87.0 Mean Corpuscular Hemoglobin 29.4 Mean Corpuscular Hemoglobin Concent 33.8 Red Cell Distribution Width 12.5 Platelet Count 191 Mean Platelet Volume 10.8 H Neutrophils % 81.6 H Lymphocytes % 8.0 L Monocytes % 9.3 Eosinophils % 0.2 Basophils % 0.2 Nucleated Red Blood Cells % 0.0 Neutrophils # (Manual) 9.7 H Lymphocytes # 1.0 Monocytes # 1.1 H Eosinophils # 0.0 Basophils # 0.0 Nucleated Red Blood Cells # 0.0 Prothrombin Time 13.9 Prothrombin Time Ratio 1.1 INR International Normalized Ratio 1.07 Sodium Level 142 Potassium Level 4.0 Chloride Level 112 H Carbon Dioxide Level 22 Anion Gap 12 Blood Urea Nitrogen 26 H Creatinine 2.56 H Glucose Level 109 Hemoglobin A1c 5.2 Calcium Level 8.4 Phosphorus Level 5.0 H Magnesium Level 2.6 H Thyroid Stimulating Hormone (TSH) 0.219 L Medications Medications Current Medications Morphine Sulfate (morphine) 3 mg Q4H PRN IV PAIN Last administered on 02/12/17 05:51; Admin Dose 3 MG; Start 02/11/17 at 04:00 Hydralazine HCl (Apresoline) 10 mg Q4H PRN IV ELEVATED SYSTOLIC BP Last administered on 02/12/17 06:47; Admin Dose 10 MG; Start 02/11/17 at 04:00 Amlodipine Besylate 10 mg 10 mg DAILY PO Last administered on 02/13/17 08:20; Admin Dose 10 MG; Start 02/11/17 at 09:00 Dextrose/Sodium Chloride (D5-1/2ns) 500 ml @ 100 mls/hr Q5H IV Last administered on 02/13/17 10:03; Admin Dose 100 MLS/HR; Start 02/11/17 at 13:26 Pantoprazole (Protonix Tab) 40 mg DAILY@06 PO Last administered on 02/13/17 05: 58; Admin Dose 40 MG; Start 02/12/17 at 06:00 Oxycodone/ Acetaminophen (Percocet (5/ 325)) 1 tab Q4H PRN PO MILD PAIN (1-3) Last administered on 02/13/17 01:52; Admin Dose 1 TAB; Start 02/12/17 at 09:00 Oxycodone/ Acetaminophen (Percocet (5/ 325)) 2 tab Q4H PRN PO MODERATE PAIN (4- 6) Last administered on 02/13/17 07:32; Admin Dose 2 TAB; Start 02/12/17 at 09:00 Ondansetron HCl (Zofran Inj) 4 mg Q6H PRN IV NAUSEA; Start 02/12/17 at 09:00 Azelastine HCl (Optivar 0.05% Oph) 1 drop BID LEFT EYE Last administered on 02/13 08:20; Admin Dose 1 DROP; Start 02/12/17 at 18:00 Docusate Sodium (Colace) 200 mg HS PO Last administered on 02/12/17 21:13; Admin Dose 200 MG; Start 02/12/17 at 21:00 Heparin Sodium (Porcine) (Heparin (5000 Units/0.5 ml)) 5,000 unit BID SC Last administered on 02/13/17 08:23; Admin Dose 5,000 UNIT; Start 02/13/17 at 09:00 JAMAR BURNS DO Feb 13, 2017 11:33
[2017-02-13] MEDS ORDERED: CEPH500C PO (13:08)
[2017-02-13] MEDS ORDERED: AMLO-147 PO (13:08)
[2017-02-13] MEDS ORDERED: Oxycodone/Acetamin (5/325) PO (13:08)
[2017-02-13] MEDS ORDERED: HYDR-3671 PO (13:08)
[2017-02-13] MEDS ORDERED: DOCU-216 PO (13:08)
--- NOTE | 2017-02-13 13:13 | PDOCDIS ---
Discharge Instructions DIAGNOSIS Discharge Diagnosis 1. 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 2. Acute renal insufficiency 3. Essential hypertension CONDITION Patient Condition: Stable HOME CARE INSTRUCTIONS: Diet Instructions: RegularSpecial Diet: regular ACTIVITY: Activity Restrictions: Slowly Increase Activity Rest between Activity Avoid heavy lifting Do not Drive Avoid Heavy Housework Bathing Restrictions: Shower FOLLOW UP/APPOINTMENTS Follow-up Plan 1. Follow up with Dr. Elio Long in one week Office Address [address] [place] [address] Office 2. Follow up with Dr. Manuel Hector in one week Office Address [id number] [place] [address] Office REMA MURRAY Feb 13, 2017 13:13
--- NOTE | 2017-02-13 13:37 | DS ---
Date/Time of Note Date/Time of Note DATE: 02/13/17 TIME: 13:34 Discharge Summary Admission/Discharge Info Admit Date/Time Feb 11, 2017 at 02:10 Discharge Date/Time Discharge Diagnosis 1. 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 2. Acute renal insufficiency 3. Essential hypertension Patient Condition: Stable Hx of Present Illness This is a 56-year-old male with a history of hypertension diagnosed recently, left inguinal hernia diagnosed 10 years ago who presented to the emergency department complaining of abdominal pain. He said about 4 5 days ago, he started experiencing generalized body ache and back pain, which he said felt like "flu". He went to an urgent care and was given pain medication with improvement in his symptom. He started experiencing abdominal pain yesterday, which is localized in the periumbilical area and is described as burning type. He denied acid reflux symptoms. He did however stated that for a while, he has been burping when on empty stomach. He was started on blood pressure medication , which he took for about a couple of months but stopped about a month ago. As far as his left inguinal hernia is concerned, it was diagnosed 10 years ago. He recently so a surgeon as an outpatient but no surgical intervention is planned. He said that he only has minimal pain intermittently for the past several years. Currently he denies pain in the inguinal area. He also denied urinary symptoms, fever, chills, chest pain or shortness of breath. When he presented to the ER, blood pressure was elevated at 182/90. Labs shows a BUN of 24 and creatinine of almost 3. CT abdomen/pelvis shows Large 94 x 61 x 55 mm herniation of anterior left urinary bladder and fat into the left inguinal canal. Patient denied a history of kidney disease. He also denied urinary symptoms. . Hospital Course This is a 56-year-old male with history of hypertension, left inguinal hernia, who came to [facility] due to reports of abdominal pain. Patient did report his pain started 4-5 days prior to admission was also like symptoms. He reported that his initial pain started in his periumbilical area and slowly migrated to left inguinal area. He did come to [facility] for further evaluation. Of note his left inguinal hernia was diagnosed in years ago. He did have CT scan of his abdomen that did show 94 x 61 x 55 mm herniation of anterior left urinary bladder and fat into the left inguinal canal. He was seen by general surgeon. He did undergo left inguinal hernia repair. He did tolerate procedure well. He is also noted with acute renal insufficiency on admission. We did have his medications renally dose and we did follow-up with design assembler recommendations. During his course of stay he did improve. He was otherwise optimized medically. He was continued on antihypertensives and they were adjusted for his hypertension. He was instructed for medical compliance. During his course of stay he did improve. He did report less pain. The plan of care was discussed with the patient and patient did verbalizes understanding. On the day of discharge patient was in stable condition Discussed plan of care with Dr. Hernandez [facility] Active Scripts Cephalexin* (Cephalexin*) 500 Mg Capsule, 500 MG PO Q8, #15 CAP Prov:REMA MURRAY 02/13/17 Docusate Sodium (Dok) 100 Mg Capsule, 200 MG PO HS for 30 Days, CAP Prov:REMA MURRAY 02/13/17 Hydralazine Hcl* (Hydralazine Hcl*) 25 Mg Tab, 25 MG PO Q8, #90 TAB Prov:REMA MURRAY 02/13/17 Amlodipine Besylate* (Amlodipine Besylate*) 10 Mg Tablet, 10 MG PO DAILY for 30 Days, TAB Prov:REMA MURRAY 02/13/17 Discontinued Reported Medications Hydrocodone Bit/Acetaminophen (Vicodin 5/500 Tablet) 1 Tab Tablet 10/09/12 Cephalexin* (Keflex*) 500 Mg Capsule 10/09/12 Sulfamethoxazole-Trimethoprim* (Bactrim* DS) 1 Tab Tab 10/09/12 Follow-up Plan CONDITION Patient Condition: Stable HOME CARE INSTRUCTIONS: Diet Instructions: RegularSpecial Diet: regular ACTIVITY: Activity Restrictions: Slowly Increase Activity Rest between Activity Avoid heavy lifting Do not Drive Avoid Heavy Housework Bathing Restrictions: Shower FOLLOW UP/APPOINTMENTS Follow-up Plan 1. Follow up with Dr. Elio Long in one week Office Address [address] [place] [address] Office 2. Follow up with Dr. Manuel Hector in one week Office Address [address] [place] [address] Office Primary Care Provider Care Physician No Primary Time spent on discharge: > 30 minutes Pending Labs Laboratory Tests Test 02/13/17 04:42 White Blood Count 11.810^3/ul (4.8-10.8) Red Blood Count 4.1510^6/ul (4.70-6.10) Hemoglobin 12.2g/dl (14.0-18.0) Hematocrit 36.1% (42.0-52.0) Mean Corpuscular Volume 87.0fl (82.0-101.0) Mean Corpuscular Hemoglobin 29.4pg (29.0-33.0) Mean Corpuscular Hemoglobin Concent 33.8g/dl (32.0-37.0) Red Cell Distribution Width 12.5% (11.5-14.5) Platelet Count 69961^3/UL (140-415) Mean Platelet Volume 10.8fl (7.4-10.4) Neutrophils % 81.6% (39.0-77.0) Lymphocytes % 8.0% (15.0-51.0) Monocytes % 9.3% (0.0-11.0) Eosinophils % 0.2% (0.0-7.0) Basophils % 0.2% (0.0-2.0) Nucleated Red Blood Cells % 0.0/100WBC (0.0-0.0) Neutrophils # (Manual) 9.710^3/ul (1.7-7.5) Lymphocytes # 1.010^3/ul (0.8-2.9) Monocytes # 1.110^3/ul (0.3-0.9) Eosinophils # 0.010^3/ul (0.0-0.5) Basophils # 0.010^3/ul (0.0-0.1) Nucleated Red Blood Cells # 0.010^3/ul (0.0-0.0) Prothrombin Time 13.9Sec (12.2-14.2) Prothrombin Time Ratio 1.1 INR International Normalized Ratio 1.07 Sodium Level 142mmol/L (135-144) Potassium Level 4.0mmol/L (3.5-5.1) Chloride Level 112mmol/L (97-110) Carbon Dioxide Level 22mmol/L (21-31) Anion Gap 12 (8-16) Blood Urea Nitrogen 26mg/dl (7-20) Creatinine 2.56mg/dl (0.61-1.24) Glucose Level 109mg/dl (70-220) Hemoglobin A1c 5.2% (0-5.9) Calcium Level 8.4mg/dl (8.4-10.2) Phosphorus Level 5.0mg/dl (2.5-4.9) Magnesium Level 2.6mg/dl (1.7-2.5) Thyroid Stimulating Hormone (TSH) 0.219MIU/L (0.465-4.680) REMA MURRAY Feb 13, 2017 13:37
[2017-02-13 14:00] VITALS: BP 160/89; RESP 16
== END 2017-02-13 15:35 | disposition home or self-care (01) ==
LOC: E/R 17:35 → MS1 02-11 02:10
PROVIDERS: ADMIT Internal Medicine; ATTEND Internal Medicine
DX: K40.30 Unilateral inguinal hernia, with obstruction, without gangrene, not specified as recurrent (principal); N28.9 Disorder of kidney and ureter, unspecified; I10 Essential (primary) hypertension; I16.0 Hypertensive urgency; E87.1 Hypo-osmolality and hyponatremia; E87.6 Hypokalemia; Z72.0 Tobacco use; K57.30 Diverticulosis of large intestine without perforation or abscess without bleeding; D64.9 Anemia, unspecified
CPT/HCPCS: 36415; 49507; 71010; 74176; 76775; 80048; 80053; 81001; 81003; 82043; 82306; 83036; 83690; 83735; 84100; 84133; 84155; 84300; 84443; 84484; 85025; 85610; 93005; 93306; 96374; 96375; 99285; C1781; G0378; J0360; J1644; J2175; J2250; J2270; J2405; J3010; J7030; J7042; J7999; 96360; 96361; J2710